=== PATIENT | male | born 1975 | race Caucasian/White ===

== ENCOUNTER 2018-12-06 16:30 | Inpatient (IN) | payer OTHER ==
[2018-12-06] MEDS ORDERED: Labetalol 5mg/ml (4ml) IVP STA ×2 (16:36→17:18)
[2018-12-06 16:38] VITALS: BMI 29.3
[2018-12-06] MEDS ORDERED: Labetalol 5mg/ml (4ml) ONE ×2 (16:41→16:46)
[2018-12-06] MEDS ORDERED: Propofol 10 mg/ml 3,000 MG/300 ML VIAL ONE (16:41)
[2018-12-06] MEDS ORDERED: Propofol 10 mg/ml Inj (20 ML) ONE (16:41)
[2018-12-06] MEDS ORDERED: Sodium Chloride 0.9% 50 ML IV ONE (16:42)
[2018-12-06] MEDS ORDERED: Iodixanol 320 MG/ML 100 ML BOTTLE IV ONE (16:42)
[2018-12-06] MEDS ORDERED: Sodium Chloride 0.9% 1,000 ML IV SCH (16:45)
[2018-12-06] MEDS ORDERED: Nicardipine 20 MG/200 ML 20 MG/200 ML BAG ONE (16:47)
[2018-12-06 16:52] LABS: BASO # 0.1 K/uL (0.0-0.2); BASO % 0.8 % (0.0-2.0); EOS # 0.1 K/uL (0.0-0.7); EOS % 0.8 % (0.0-4.0); HEMOGLOBIN 15.4 g/dL (12.0-18.0); LYMPH # 2.5 K/uL (1.0-4.3); LYMPH % 37.1 % (20.0-40.0); MEAN CELL VOLUME 88.5 fl (80.0-94.0); MEAN CORPUSCULAR HGB CONC 32.7 g/dL (33.0-37.0); MEAN PLATELET VOLUME 6.7 fl (7.2-11.7); MONO # 0.3 K/uL (0.0-0.8); MONO % 4.6 % (0.0-10.0); NEUT # 3.8 K/uL (1.8-7.0); NEUT % 56.7 % (50.0-75.0); NRBC % 0.1 % (0.0-0.0); RBC 5.31 Mil/uL (4.40-5.90); RED CELL DISTRIBUTION WIDTH 14.4 % (11.5-14.5); WHITE BLOOD COUNT 6.6 K/uL (4.8-10.8)
[2018-12-06 16:57] LABS: PROTHROMBIN TIME 10.8 Seconds (9.8-13.1)
[2018-12-06 17:00] LABS: PARTIAL THROMBOPLASTIN TIME 28.5 Seconds (25.6-37.1)
[2018-12-06 17:08] LABS: ALB/GLOB RATIO 1.4 (1.0-2.1); ALBUMIN 4.6 g/dL (3.5-5.0); ALT/SGPT 42 U/L (21-72); AST/SGOT 67 U/L (17-59); BLOOD UREA NITROGEN 9 mg/dl (9-20); CALCIUM 9.2 mg/dL (8.4-10.2); GFR NON-AFRICAN AMERICAN > 60; HDL CHOLESTEROL 108 MG/DL (30-70)
--- NOTE | 2018-12-06 17:10 | CT ---
Date of service: 12/06/2018 PROCEDURE: CT HEAD WITHOUT CONTRAST. HISTORY: code stroke COMPARISON: None available. TECHNIQUE: Axial computed tomography images were obtained through the head/brain without intravenous contrast. Radiation dose: Total exam DLP = 1161.62 mGy-cm. This CT exam was performed using one or more of the following dose reduction techniques: Automated exposure control, adjustment of the mA and/or kV according to patient size, and/or use of iterative reconstruction technique. FINDINGS: HEMORRHAGE: No intracranial hemorrhage. BRAIN: No mass effect or edema. No atrophy or chronic microvascular ischemic changes. VENTRICLES: Unremarkable. No hydrocephalus. CALVARIUM: Unremarkable. PARANASAL SINUSES: Unremarkable as visualized. No significant inflammatory changes. MASTOID AIR CELLS: Unremarkable as visualized. No inflammatory changes. OTHER FINDINGS: There is some asymmetry in the left scalp muscle bundles and soft tissues. There is left fronto temporal subcutaneous fat increased density also perceived series 4, image 15-this may relate to head trauma. No calvarial fracture seen. There is head tilt noted. IMPRESSION: No intracranial hemorrhage or mass effect seen. No calvarial fracture. There is left frontal temporal soft tissue/scalp asymmetrical soft tissue changes and prominence here. This can be seen with a trauma. Correlate clinically.
[2018-12-06 17:18] LABS: LDL CHOLESTEROL 106 mg/dL (0-129)
[2018-12-06] MEDS ORDERED: Nicardipine 20 MG/200 ML 20 MG/200 ML BAG IV ONE (17:18)
[2018-12-06] MEDS ORDERED: levETIRAcetam 1,500 MG in Sodium Chloride 0.9% 100 ML IVPB ONE (17:30)
[2018-12-06 17:35] LABS: ABG ALLEN TEST YES; ARTERIAL BLOOD GAS HCO3 23.1 mmol/L (21-28); ARTERIAL BLOOD GAS O2 SAT 99.1 % (95-98); ARTERIAL BLOOD GAS PCO2 57 mm/Hg (35-45); ARTERIAL BLOOD GAS PH 7.26 (7.35-7.45); ARTERIAL BLOOD GAS PO2 189 mm/Hg (80-100); ARTERIAL BLOOD GAS TCO2 27.3 mmol/L (22-28)
--- NOTE | 2018-12-06 17:40 | RAD ---
Date of service: 12/06/2018 HISTORY: Code Stroke COMPARISON: No prior. FINDINGS: LUNGS: Low lung volumes. Patchy left-sided infiltrates versus atelectatic changes. PLEURA: No significant pleural effusion identified, no pneumothorax apparent. CARDIOVASCULAR: No aortic atherosclerotic calcification present. Normal cardiac size. No pulmonary vascular congestion. OSSEOUS STRUCTURES: No significant abnormalities. VISUALIZED UPPER ABDOMEN: Normal. OTHER FINDINGS: Endotracheal tube with tip between the clavicles and raymon. IMPRESSION: Endotracheal tube in satisfactory position. Patchy left-sided infiltrates versus atelectatic changes.
[2018-12-06 18:00] LABS: BARBITURATES, UR NEGATIVE (NEGATIVE); BENZODIAZEPINES, UR POSITIVE (NEGATIVE); OPIATES, UR NEGATIVE (NEGATIVE); PHENCYCLIDINE, UR NEGATIVE (NEGATIVE)
[2018-12-06] MEDS ORDERED: Midazolam 50 MG in Dextrose 5% In Water 50 ML IV STA (18:15)
[2018-12-06] MEDS ORDERED: Sodium Chloride 0.9% 1,000 ML IV STA (18:25)
--- NOTE | 2018-12-06 18:25 | CT ---
Date of service: 12/06/2018 PROCEDURE: CT Angiography of the Brain. HISTORY: seizure. COMPARISON: No prior similar study available for comparison. TECHNIQUE: CT angiography of the intracranial arteries was performed. Coronal and sagittal maximum intensity projection reformated images were generated. Radiation dose: Total exam DLP = 422.07 mGy-cm. This CT exam was performed using one or more of the following dose reduction techniques: Automated exposure control, adjustment of the mA and/or kV according to patient size, and/or use of iterative reconstruction technique. FINDINGS: RIGHT CAROTID ARTERIES: Common Carotid Artery: Normal. Carotid Bifurcation: Normal. Internal Carotid Artery:Normal. External Carotid Artery (proximal branches): Normal. LEFT CAROTID ARTERIES: Common Carotid Artery: Normal. Carotid Bifurcation: Normal. Internal Carotid Artery:Normal. External Carotid Artery (proximal branches): Normal. VERTEBRAL ARTERIES: Right Vertebral Artery: Normal. Left Vertebral Artery: Normal. INTERNAL CEREBRAL ARTERIES: Unremarkable. The skull base, petrous, cavernous and supraclinoid segments are bilaterally widely patent. ANTERIOR CEREBRAL ARTERIES: Unremarkable. A1 and A2 segments are widely patent. Smaller distal branches unremarkable, as visualized. MIDDLE CEREBRAL ARTERIES: Unremarkable. M1 and M2 segments are widely patent. Perisylvian branches grossly symmetric. POSTERIOR CIRCULATION: Basilar Artery: Unremarkable. Distal Vertebral Arteries: Unremarkable. Posterior Cerebral Arteries: Unremarkable. Posterior Inferior Cerebellar Arteries: Unremarkable. ANEURYSM/ VASCULAR MALFORMATIONS: None. OTHER FINDINGS: The patient is status post intubation. There are linear opacities in the upper lobes likely atelectasis. IMPRESSION: Unremarkable CT Angiography of the Brain. Preliminary report was submitted by [facility].
--- NOTE | 2018-12-06 18:46 | CP.CCUPN ---
CCU Subjective - Physician Review Subjective (Free Text): ICU Admission from ER; discussed with ER MD: 43 y/o male had witnessed seizure at work, duration unknown, posturing and unresponsiveness noted when EMS arrived and subsequently orally intubated. Meds given by EMS included Ativan ad Rocuronium. No further seizure activity noted, remains unresponsive in ER on MV, possible post-ictal state, initial CT head negative for acute pathology. Neurology consulted, Keppra loading initiated. Employer provided pre-employment HP and notable for only HTN and heart problems. Initial VSS in ER noted with BP 235/146, with HR 126, started on Nicardipine drip; breathing 16 on AC 16, SPO2 100% on 100% oxygen. No other information / HPI available, from intubated patient, no family available. Upon the time of my exam, now appears agitated and diaphoretic, RR up to 28; moving all extremities, eye open spontaneously, not following any commands. Nicardipine has been discontinued, BP 153/100, HR 125; Propofol started for anxiolysis and awaiting Versed drip as per ER MD. T = 99.6F, BP 150/120, HR 122, sinus, HR 130 sinus on Nicardipine. ROS: above. No other pertinent negs or positives on 10+ system review obtainable. Allergies: unknown Home meds: Procardia, Atenolol PMSFH: All other Nursing and physician documentation reviewed to date; no new pertinent info noted relevant to current medical problems. EXAM- HEENT: no icterus, no gaze preference, pupils 3 mm and reactive NECK: No JVD visible, supple, carotids equal upstroke bilat/no bruit. CHEST: clear bilat BS; no wheezes audible bilaterally. HEART: regular, distant, tachy S1S2, no rubs or murmurs noted ABD: soft, nontender, no guarding, no organomegaly, BS hypoactive. EXT: no leg edema, no calf tenderness or palpable cords, distal pulses present and symmetrical. NEURO: minimal withdrawal to deep pain. SKIN: no rashes, warm and dry, multiple scattered pinpoint petechial lesions over face, upper torso, abdomen, arms and upper thighs. LABS: WBC= 6.6 HGB= 15.4 PLTs= 126K Coags: normal 7.26/57/189 Lactate= 3.1 Na= 141 K= 3.7 CL= 102 HCO3= 16 BUN/Cr= 9/0.9 BS= 285 Trop negative ammonia = 210 CXR: (my interp) ETT near, but above raymon, large amount of gastric air, no gross consolidation, hypoexpanded lung sanchez. EKG: (my interp) sinus 144/min, minor ST changes II, III, F with T inversions III, tall Ts V1-3. IMPRESSION / MAJOR PROBLEMS NOW: 1. Acute Resp Failure 2 AMS 2. New onset Seizure Disorder, r/o occult intoxication, r/o occult COUNTER TACKER infection. 3. Hypertensive Urgency 4. Hyperammonianemia 5. h/o heart problems PLAN: 1. Airway protection and MV support until neuromental status improves and stabilizes. Neurochecks Q2, Seizure precautions. AEDs started. Consider repeat brain imaging (after 24h with CT or MRI). 2. Cautious reduction in BP, initial MAP = 175, keep with 20% reduction to MAP 140 for now. 3. Repeat Serial Lactates, elevation due to seizure activity. IVFs and volume loading, follow renal function, serial CPKs. 4. Repeat CXR, Sputum for cx, r/o aspiration event. Watch temps, may need empiric abx coverage: e.g. Zosyn for now. 5. Adjust MV settings TV for IBW, avoid too rapid a correction of hypercarbia, decrease FiO2 as tolerated. See orders for TV 400ml, try 80% oxygen and repeat ABG. 6. NGT / OGT for gastric decompression. 7. Repeat serum ammonia level after IVF hydration, check other LFTs, r/o other metabolic pathway disorder, Lactulose via NGT/OGT if he remains obtunded. Serial Accuchecks, check HGB A1c, hyperglycemia post EMS mgmt. 8. Urine tox screen. 9. Prophylactic H-2Bs and LMWH.
--- NOTE | 2018-12-06 19:20 | ED PDOC ---
HPI: Seizure Time Seen by Provider: 12/06/18 16:36 Chief Complaint (Nursing): Seizure Chief Complaint (Provider): Seizure History Per: EMS History/Exam Limitations: clinical condition Recent Seizure Activity Began: Just Before Arrival Number Of Seizures: One Length Of Seizures (Duration): Minutes (x 1) Associated Symptoms: Bit Tongue Post-ictal Period: Yes Additional Complaint(s): 43 year old male bbrought in by EMS due to unconsciousness. According to EMS, coworkers were eating lunch when he collapsed and seized, just prior to arrival (no reported head trauma on falling). Coworkers reports convulsed for approximately one minute. Patient then began posturing position. EMS states on arrival bleeding from the mouth because patient bit tongue. He was given rocuronium and intubated in the field. EMS also gave 4 versed. Patient is sinus tachycardic at 154 and was intubated with 8.0 tube with 25 at the lips. Employer arrived stating that per employee health records he takes nifedipine and sorvate c with a history of HTN and heart problems. According to coworker, he spoke to sister in [facility] who reports he struggles with alcoholism and may have had withdrawal seizure in the past. Past Medical History Reviewed: Historical Data, Nursing Documentation, Vital Signs Vital Signs: Last Vital Signs Temp 99.4 F 12/06/18 19:06 Pulse 114 H 12/06/18 19:06 Resp 16 12/06/18 19:06 BP 144/79 12/06/18 19:06 Pulse Ox 99 12/06/18 19:06 - Medical History PMH: HTN - Surgical History Surgical History: No Surg Hx - Family History Family History: States: Unknown Family Hx - Home Medications Home Medications: Ambulatory Orders Medication Instructions Recorded RX: Atenolol [Tenormin] 50 mg PO DAILY 12/06/18 RX: Nifedipine [Procardia] 10 mg PO Q8 12/06/18 Sorvate C 1 appl TOP 12/06/18 - Allergies Allergies/Adverse Reactions: Allergies Allergy/AdvReac Type Severity Reaction Status Date / Time Unobtainable Allergy Verified 12/06/18 16:36 Review of Systems Review Of Systems: ROS cannot be obtained secondary to pt's inabilty to answer questions. Physical Exam - Reviewed Nursing Documentation Reviewed: Yes Vital Signs Reviewed: Yes - Physical Exam Appears: Positive for: In Acute Distress (intubated) Head Exam: Positive for: ATRAUMATIC, NORMAL INSPECTION, NORMOCEPHALIC Skin: Positive for: Normal Color, Warm, Dry Eye Exam: Positive for: EOMI, Normal appearance, PERRL ENT: Positive for: Other (dried blood around mouth with no active bleeding; abrasion to chin without bleeding. ET tube in place with confirmed waveform) Neck: Positive for: Normal, Painless ROM, Supple Cardiovascular/Chest: Positive for: Tachycardia (at 114). Negative for: Murmur Respiratory: Positive for: Normal Breath Sounds (bilaterally), Other (End- Tidal CO2 at 54). Negative for: Crackles, Rales, Rhonchi, Wheezing, Respiratory Distress Gastrointestinal/Abdominal: Positive for: Normal Exam, Soft. Negative for: Tenderness Extremity: Positive for: Other (purplish plaque at right thigh and along groin) - Laboratory Results Result Diagrams: 12/07/18 04:37 12/07/18 04:37 Lab Results: pCO2 57 mm/Hg (35-45) H 12/06/18 17:20 pO2 189 mm/Hg (80-100) H 12/06/18 17:20 HCO3 23.1 mmol/L (21-28) 12/06/18 17:20 ABG pH 7.26 (7.35-7.45) L 12/06/18 17:20 ABG Total CO2 27.3 mmol/L (22-28) 12/06/18 17:20 ABG O2 Saturation 99.1 % (95-98) H 12/06/18 17:20 ABG Base Excess -2.4 mmol/L (-2.0-3.0) L 12/06/18 17:20 Britton Test Yes 12/06/18 17:20 ABG Potassium 3.9 mmol/L (3.6-5.2) 12/06/18 17:20 A-a O2 Difference -111.0 mm/Hg 12/06/18 17:20 Sodium 135.0 mmol/L (132-148) 12/06/18 17:20 Chloride 101.0 mmol/L (98-107) 12/06/18 17:20 Glucose 234 mg/dL (75-110) H 12/06/18 17:20 Lactate 3.1 mmol/L (0.7-2.1) H 12/06/18 17:20 FiO2 21.0 % 12/06/18 17:20 PT 10.8 Seconds (9.8-13.1) 12/06/18 16:40 INR 1.0 12/06/18 16:40 APTT 28.5 Seconds (25.6-37.1) 12/06/18 16:40 Troponin I 0.0300 ng/mL (0.00-0.120) 12/06/18 16:40 Total Bilirubin 0.7 mg/dl (0.2-1.3) 12/06/18 16:40 AST 67 U/L (17-59) H 12/06/18 16:40 ALT 42 U/L (21-72) 12/06/18 16:40 Alkaline Phosphatase 85 U/L (38-126) 12/06/18 16:40 Total Protein 8.0 G/DL (6.3-8.2) 12/06/18 16:40 Albumin 4.6 g/dL (3.5-5.0) 12/06/18 16:40 Globulin 3.4 gm/dL (2.2-3.9) 12/06/18 16:40 Albumin/Globulin Ratio 1.4 (1.0-2.1) 12/06/18 16:40 - ECG O2 Sat by Pulse Oximetry: 99 (RA) Pulse Ox Interpretation: Normal Medical Decision Making Medical Decision Makin:37 MDM: Workup for stroke vs new onset sz vs post ictal vs HTN emergency Labs including cardiac workup, EKG, CTA Head and neck, CT brain Neuro consult 18:05 Patient with improved blood pressure after 2 doses of labetalol and nicardipine drop (titrated to blood pressure 160-180) Spoke with Natalia who is requesting 1500 mg Keppra and EEG which was ordered Spoke to Dr. Altamirano of ICU for admission and Dr. Rondon for medical services Admitted to the ICU Scribe Attestation: Documented by Jenny Dyer acting as a scribe for Emily Gee MD Provider Scribe Attestation: All medical record entries made by the Scribe were at my direction and personally dictated by me. I have reviewed the chart and agree that the record accurately reflects my personal performance of the history, physical exam, medical decision making, and the department course for this patient. I have also personally directed, reviewed, and agree with the discharge instructions and disposition. Disposition - Clinical Impression Clinical Impression: Seizure disorder - Patient ED Disposition Is Patient to be Admitted: Yes - Disposition Disposition Time: 18:05 Condition: CRITICAL - Pt Status Changed To: Hospital Disposition Of: Inpatient - Admit Certification Admit to Inpatient:: After my assessment, the patient will require hospitalization for at least two midnights. This is because of the severity of symptoms shown, intensity of services needed, and/or the medical risk in this patient being treated as an outpatient.
[2018-12-06] MEDS ORDERED: Labetalol 5mg/ml (4ml) IVP PRN (21:16)
[2018-12-06] MEDS ORDERED: Lactated Ringer's 1,000 ML IV SCH (21:30)
[2018-12-06] MEDS: Piperacillin/Tazobact 3.375 GM in Sodium Chloride 0.9% 100 ML IVPB SCH (22:14)
[2018-12-06] MEDS ORDERED: Acetaminophen 650mg/20.3ml solution UD PO ONE (23:10)
[2018-12-06] MEDS: Insulin Regular 100 units/ml SC SCH (23:31)
[2018-12-07] MEDS: Piperacillin/Tazobact 3.375 GM in Sodium Chloride 0.9% 100 ML IVPB SCH ×4 (04:12→21:33)
[2018-12-07 04:57] LABS: ABG ALLEN TEST YES; ARTERIAL BLOOD GAS HCO3 27.5 mmol/L (21-28); ARTERIAL BLOOD GAS O2 SAT 100.6 % (95-98); ARTERIAL BLOOD GAS PCO2 37 mm/Hg (35-45); ARTERIAL BLOOD GAS PH 7.47 (7.35-7.45); ARTERIAL BLOOD GAS PO2 343 mm/Hg (80-100)
[2018-12-07 05:35] LABS: BASO % 0.5 % (0.0-2.0); EOS # 0.1 K/uL (0.0-0.7); EOS % 0.8 % (0.0-4.0); HEMOGLOBIN 13.5 g/dL (12.0-18.0); LYMPH # 1.4 K/uL (1.0-4.3); LYMPH % 18.8 % (20.0-40.0); MEAN CELL VOLUME 87.3 fl (80.0-94.0); MEAN CORPUSCULAR HEMOGLOBIN 28.7 pg (27.0-31.0); MEAN CORPUSCULAR HGB CONC 32.9 g/dL (33.0-37.0); MEAN PLATELET VOLUME 7.3 fl (7.2-11.7); MONO # 0.8 K/uL (0.0-0.8); MONO % 10.1 % (0.0-10.0); NEUT # 5.3 K/uL (1.8-7.0); NEUT % 69.8 % (50.0-75.0); RBC 4.71 Mil/uL (4.40-5.90); RED CELL DISTRIBUTION WIDTH 14.1 % (11.5-14.5); WHITE BLOOD COUNT 7.6 K/uL (4.8-10.8)
[2018-12-07 06:25] LABS: ALB/GLOB RATIO 1.2 (1.0-2.1); ALBUMIN 3.7 g/dL (3.5-5.0); ALT/SGPT 46 U/L (21-72); AST/SGOT 53 U/L (17-59); BLOOD UREA NITROGEN 7 mg/dl (9-20); CALCIUM 8.8 mg/dL (8.4-10.2); GFR NON-AFRICAN AMERICAN > 60
[2018-12-07] MEDS: Insulin Regular 100 units/ml SC SCH ×2 (07:26→13:26)
--- NOTE | 2018-12-07 07:50 | CP.PCM.HP ---
<Purnima Kent - Last Filed: 12/07/18 13:01> History of Present Illness - History of Present Illness History of Present Illness: HPI: 43 YO Male with PMHx of HTN and sig ETOH abuse presented to [facility] ED after seizure. Pt was was at work when he started seizing, ems was called pt was found given Ativan and rocronium and intubated on site. Pt was brought to the ER, findings sig for elevated ammonia, and sig elevation of BP. Pt is seen and examined in ICU this AM. friends by bedside states that pt has not been taking his BP meds for the past two + weeks and sig ETOH abuse (6 packs of whiskey almost daily). PMHx: HTN and sig ETOH abuse SHx: ETOH abuse, hx of smoking, no illicit drug use per friends and works in IT ROS: unable to obtain given pt intubated Present on Admission - Present on Admission Any Indicators Present on Admission: No Past Patient History - Past Medical History & Family History Past Medical History?: Yes - Past Social History Smoking Status: Current Some Days Smoker Alcohol: > 2 Drinks/Day Drugs: Denies - CARDIAC Hx Hypertension: Yes - MUSCULOSKELETAL/RHEUMATOLOGICAL Hx Falls: Yes - PSYCHIATRIC Hx Substance Use: No Meds Allergies/Adverse Reactions: Allergies Allergy/AdvReac Type Severity Reaction Status Date / Time No Known Allergies Allergy Verified 12/08/18 09:22 Physical Exam - Constitutional Appears: No Acute Distress, Other (intubated and sedated ) - Head Exam Head Exam: NORMAL INSPECTION - Eye Exam Eye Exam: Normal appearance - Respiratory Exam Respiratory Exam: NORMAL BREATHING PATTERN (course breath sounds b/l ). absent: Wheezes - Cardiovascular Exam Cardiovascular Exam: REGULAR RHYTHM, +S1, +S2 - GI/Abdominal Exam GI & Abdominal Exam: Normal Bowel Sounds, Soft - Exam Additional comments: neslon in place draining yellow urine - Extremities Exam Extremities exam: Positive for: normal inspection. Negative for: pedal edema - Neurological Exam Neurological exam: Alert Additional comments: moving all ext, following commands Results - Vital Signs Recent Vital Signs: Last Vital Signs Temp 98.9 F 12/07/18 06:00 Pulse 92 H 12/07/18 06:00 Resp 17 12/07/18 06:00 BP 136/78 12/07/18 06:00 Pulse Ox 100 12/07/18 06:00 - Labs Result Diagrams: 12/07/18 04:37 12/07/18 04:37 Labs: Laboratory Results - last 24 hr 12/06/18 12/06/18 12/06/18 16:40 16:40 16:40 WBC 6.6 RBC 5.31 Hgb 15.4 Hct 47.0 MCV 88.5 MCH 29.0 MCHC 32.7 L RDW 14.4 Plt Count 126 L MPV 6.7 L Neut % (Auto) 56.7 Lymph % (Auto) 37.1 [place] % (Auto) 4.6 Eos % (Auto) 0.8 Baso % (Auto) 0.8 Neut # (Auto) 3.8 Lymph # (Auto) 2.5 [place] # (Auto) 0.3 Eos # (Auto) 0.1 Baso # (Auto) 0.1 PT 10.8 INR 1.0 APTT 28.5 pCO2 pO2 HCO3 ABG pH ABG Total CO2 ABG O2 Saturation ABG Base Excess Britton Test ABG Potassium A-a O2 Difference Glucose Lactate Vent Mode Mechanical Rate FiO2 Tidal Volume PEEP Sodium 141 Potassium 3.7 Chloride 102 Carbon Dioxide 16 L Anion Gap 27 H BUN 9 Creatinine 0.9 Est GFR ( Amer) > 60 Est GFR (Non-Af Amer) > 60 POC Glucose (mg/dL) Random Glucose 285 H Lactic Acid Calcium 9.2 Phosphorus Magnesium Total Bilirubin 0.7 AST 67 H ALT 42 Alkaline Phosphatase 85 Ammonia Total Creatine Kinase Troponin I 0.0300 Total Protein 8.0 Albumin 4.6 Globulin 3.4 Albumin/Globulin Ratio 1.4 Triglycerides 74 Cholesterol 208 H LDL Cholesterol Direct 106 HDL Cholesterol 108 H Arterial Blood Potassium Urine Opiates Screen Urine Methadone Screen Ur Barbiturates Screen Ur Phencyclidine Scrn Ur Amphetamines Screen U Benzodiazepines Scrn U Oth Cocaine Metabols U Cannabinoids Screen Alcohol, Quantitative < 10 Blood Type Antibody Screen BBK History Checked 12/06/18 12/06/18 12/06/18 16:40 16:40 16:43 WBC RBC Hgb Hct MCV MCH MCHC RDW Plt Count MPV Neut % (Auto) Lymph % (Auto) [place] % (Auto) Eos % (Auto) Baso % (Auto) Neut # (Auto) Lymph # (Auto) [place] # (Auto) Eos # (Auto) Baso # (Auto) PT INR APTT pCO2 pO2 HCO3 ABG pH ABG Total CO2 ABG O2 Saturation ABG Base Excess Britton Test ABG Potassium A-a O2 Difference Glucose Lactate Vent Mode Mechanical Rate FiO2 Tidal Volume PEEP Sodium Potassium Chloride Carbon Dioxide Anion Gap BUN Creatinine Est GFR ( Amer) Est GFR (Non-Af Amer) POC Glucose (mg/dL) 229 H Random Glucose Lactic Acid Calcium Phosphorus Magnesium Total Bilirubin AST ALT Alkaline Phosphatase Ammonia 110 H* Total Creatine Kinase Troponin I Total Protein Albumin Globulin Albumin/Globulin Ratio Triglycerides Cholesterol LDL Cholesterol Direct HDL Cholesterol Arterial Blood Potassium Urine Opiates Screen Urine Methadone Screen Ur Barbiturates Screen Ur Phencyclidine Scrn Ur Amphetamines Screen U Benzodiazepines Scrn U Oth Cocaine Metabols U Cannabinoids Screen Alcohol, Quantitative Blood Type A POSITIVE Antibody Screen Negative BBK History Checked No verified bt 12/06/18 12/06/18 12/06/18 17:20 17:40 23:31 WBC RBC Hgb Hct MCV MCH MCHC RDW Plt Count MPV Neut % (Auto) Lymph % (Auto) [place] % (Auto) Eos % (Auto) Baso % (Auto) Neut # (Auto) Lymph # (Auto) [place] # (Auto) Eos # (Auto) Baso # (Auto) PT INR APTT pCO2 57 H pO2 189 H HCO3 23.1 ABG pH 7.26 L ABG Total CO2 27.3 ABG O2 Saturation 99.1 H ABG Base Excess -2.4 L Britton Test Yes ABG Potassium 3.9 A-a O2 Difference -111.0 Glucose 234 H Lactate 3.1 H Vent Mode Mechanical Rate FiO2 21.0 Tidal Volume PEEP Sodium 135.0 Potassium Chloride 101.0 Carbon Dioxide Anion Gap BUN Creatinine Est GFR ( Amer) Est GFR (Non-Af Amer) POC Glucose (mg/dL) 134 H Random Glucose Lactic Acid Calcium Phosphorus Magnesium Total Bilirubin AST ALT Alkaline Phosphatase Ammonia Total Creatine Kinase Troponin I Total Protein Albumin Globulin Albumin/Globulin Ratio Triglycerides Cholesterol LDL Cholesterol Direct HDL Cholesterol Arterial Blood Potassium 3.9 Urine Opiates Screen Negative Urine Methadone Screen Negative Ur Barbiturates Screen Negative Ur Phencyclidine Scrn Negative Ur Amphetamines Screen Negative U Benzodiazepines Scrn Positive U Oth Cocaine Metabols Negative U Cannabinoids Screen Negative Alcohol, Quantitative Blood Type Antibody Screen BBK History Checked 12/07/18 12/07/18 12/07/18 04:35 04:37 04:37 WBC RBC Hgb Hct MCV MCH MCHC RDW Plt Count MPV Neut % (Auto) Lymph % (Auto) [place] % (Auto) Eos % (Auto) Baso % (Auto) Neut # (Auto) Lymph # (Auto) [place] # (Auto) Eos # (Auto) Baso # (Auto) PT INR APTT pCO2 37 pO2 343 H HCO3 27.5 ABG pH 7.47 H ABG Total CO2 28.0 ABG O2 Saturation 100.6 H ABG Base Excess 3.2 H Britton Test Yes ABG Potassium 2.8 L A-a O2 Difference 181.0 Glucose 125 H Lactate 1.7 Vent Mode A/c Mechanical Rate 12 FiO2 80.0 Tidal Volume 400 PEEP 5 Sodium 138.0 Potassium Chloride 109.0 H Carbon Dioxide Anion Gap BUN Creatinine Est GFR ( Amer) Est GFR (Non-Af Amer) POC Glucose (mg/dL) Random Glucose Lactic Acid 1.9 Calcium Phosphorus Magnesium Total Bilirubin AST ALT Alkaline Phosphatase Ammonia 21 D Total Creatine Kinase Troponin I Total Protein Albumin Globulin Albumin/Globulin Ratio Triglycerides Cholesterol LDL Cholesterol Direct HDL Cholesterol Arterial Blood Potassium 2.8 L Urine Opiates Screen Urine Methadone Screen Ur Barbiturates Screen Ur Phencyclidine Scrn Ur Amphetamines Screen U Benzodiazepines Scrn U Oth Cocaine Metabols U Cannabinoids Screen Alcohol, Quantitative Blood Type Antibody Screen BBK History Checked 12/07/18 12/07/18 12/07/18 04:37 04:37 06:20 WBC 7.6 RBC 4.71 Hgb 13.5 Hct 41.1 MCV 87.3 MCH 28.7 MCHC 32.9 L RDW 14.1 Plt Count 99 L D MPV 7.3 Neut % (Auto) 69.8 Lymph % (Auto) 18.8 L [place] % (Auto) 10.1 H Eos % (Auto) 0.8 Baso % (Auto) 0.5 Neut # (Auto) 5.3 Lymph # (Auto) 1.4 [place] # (Auto) 0.8 Eos # (Auto) 0.1 Baso # (Auto) 0.0 PT INR APTT pCO2 pO2 HCO3 ABG pH ABG Total CO2 ABG O2 Saturation ABG Base Excess Britton Test ABG Potassium A-a O2 Difference Glucose Lactate Vent Mode Mechanical Rate FiO2 Tidal Volume PEEP Sodium 139 Potassium 3.0 L Chloride 105 Carbon Dioxide 25 Anion Gap 12 BUN 7 L Creatinine 0.8 Est GFR ( Amer) > 60 Est GFR (Non-Af Amer) > 60 POC Glucose (mg/dL) 124 H Random Glucose 115 H Lactic Acid Calcium 8.8 Phosphorus 3.1 Magnesium 2.1 Total Bilirubin 1.1 AST 53 ALT 46 Alkaline Phosphatase 74 Ammonia Total Creatine Kinase Troponin I Total Protein 6.6 Albumin 3.7 Globulin 3.0 Albumin/Globulin Ratio 1.2 Triglycerides Cholesterol LDL Cholesterol Direct HDL Cholesterol Arterial Blood Potassium Urine Opiates Screen Urine Methadone Screen Ur Barbiturates Screen Ur Phencyclidine Scrn Ur Amphetamines Screen U Benzodiazepines Scrn U Oth Cocaine Metabols U Cannabinoids Screen Alcohol, Quantitative Blood Type Antibody Screen BBK History Checked 12/07/18 06:36 WBC RBC Hgb Hct MCV MCH MCHC RDW Plt Count MPV Neut % (Auto) Lymph % (Auto) [place] % (Auto) Eos % (Auto) Baso % (Auto) Neut # (Auto) Lymph # (Auto) [place] # (Auto) Eos # (Auto) Baso # (Auto) PT INR APTT pCO2 pO2 HCO3 ABG pH ABG Total CO2 ABG O2 Saturation ABG Base Excess Britton Test ABG Potassium A-a O2 Difference Glucose Lactate Vent Mode Mechanical Rate FiO2 Tidal Volume PEEP Sodium Potassium Chloride Carbon Dioxide Anion Gap BUN Creatinine Est GFR ( Amer) Est GFR (Non-Af Amer) POC Glucose (mg/dL) Random Glucose Lactic Acid Calcium Phosphorus Magnesium Total Bilirubin AST ALT Alkaline Phosphatase Ammonia Total Creatine Kinase 858 H Troponin I Total Protein Albumin Globulin Albumin/Globulin Ratio Triglycerides Cholesterol LDL Cholesterol Direct HDL Cholesterol Arterial Blood Potassium Urine Opiates Screen Urine Methadone Screen Ur Barbiturates Screen Ur Phencyclidine Scrn Ur Amphetamines Screen U Benzodiazepines Scrn U Oth Cocaine Metabols U Cannabinoids Screen Alcohol, Quantitative Blood Type Antibody Screen BBK History Checked Assessment & Plan (1) Seizure Status: Acute (2) Hypertension Status: Chronic (3) Substance abuse Status: Chronic (4) Hypokalemia Status: Acute (5) Hyperammonemia Status: Acute (6) Respiratory failure requiring intubation Status: Acute - Assessment and Plan (Free Text) Assessment: Assessment/Plan: 43 YO Male with PMHx of HTN and sig ETOH abuse is admitted after respiratory failure requiring intubation and seizure disorder. Acute respiratory failure -likely 2/2 to ETOH encephalopathy, vs hypertenstive encephalopathy, vs post ictal -intubated and sedated -c/w vent care -ABG sig for acidosis with high O2, consider changing vent setting -CXR tubes in place, atelectasis L side -wean off sedation, extubation Seizure disorder, acute -unknown etiology, HTN encephalopathy (emergency) vs ETOH, metabolic -neurology on board; CT head, CTA, EEG -CT head no acute intracranial finding -CTA no acute findings -c/w keppra HTN emergency -resolved at this time -c/w with bp meds Substance abuse -ETOH abuse -intubated and sedated -CIWA, Ativan prn -thiamine and folic acid Hyperammonia/hyperkalemia -c/w lactulose -replace prn Rhabdo -elevated CPK -likely 2.2 to seizure -IVFs Dvt: Lovenox SC <Rondon,Mariano K - Last Filed: 12/08/18 13:30> Results - Vital Signs Recent Vital Signs: Last Vital Signs Temp 98.4 F 12/08/18 12:21 Pulse 74 12/08/18 12:21 Resp 18 12/08/18 12:21 BP 122/81 12/08/18 12:21 Pulse Ox 92 L 12/08/18 12:21 - Labs Result Diagrams: 12/08/18 05:25 12/08/18 05:25 Labs: Laboratory Results - last 24 hr 12/07/18 12/08/18 12/08/18 16:52 05:25 05:25 WBC 7.0 RBC 4.65 Hgb 13.7 Hct 40.4 MCV 86.8 MCH 29.4 MCHC 33.9 RDW 13.9 Plt Count 101 L Sodium 139 Potassium 3.3 L Chloride 105 Carbon Dioxide 27 Anion Gap 10 BUN 5 L Creatinine 0.8 Est GFR ( Amer) > 60 Est GFR (Non-Af Amer) > 60 POC Glucose (mg/dL) 131 H Random Glucose 90 Calcium 8.8 Total Bilirubin 1.2 AST 41 ALT 36 Alkaline Phosphatase 64 Total Protein 6.6 Albumin 3.5 Globulin 3.0 Albumin/Globulin Ratio 1.2 Triglycerides 97 D Cholesterol 164 LDL Cholesterol Direct 97 HDL Cholesterol 64 Assessment & Plan - Assessment and Plan (Free Text) Assessment: Patient was personally seen and examined by me in rounds with residents. Available labs and diagnostic data reviewed. Case, Patient's condition and management plan discussed with residents in rounds. Agree with resident's progress note. Plan: As ordered.
--- NOTE | 2018-12-07 08:16 | RAD ---
Date of service: 12/07/2018 HISTORY: intubated COMPARISON: Frontal chest radiograph 12/06/2018, 5:01 p.m.. FINDINGS: LUNGS: Endotracheal tube is not significantly changed in position. Interval nasogastric tube is in place terminating at the region of the gastric viscus left upper quadrant abdomen. Diminished airspace disease left base reflecting pneumonia or atelectasis. Borderline similar changes medial right base. PLEURA: No significant pleural effusion identified, no pneumothorax apparent. CARDIOVASCULAR: No aortic atherosclerotic calcification present. Normal cardiac size. No pulmonary vascular congestion. OSSEOUS STRUCTURES: No significant abnormalities. VISUALIZED UPPER ABDOMEN: Normal. OTHER FINDINGS: None. IMPRESSION: Interval nasogastric tube placement terminating at the region of the stomach. ET tube unchanged in position. Diminishing limited left medial basilar atelectasis or infiltrate with similar minimal patchy density medial right base.
[2018-12-07] MEDS ORDERED: levETIRAcetam 500 MG in Sodium Chloride 0.9% 100 ML IVPB SCH (09:00)
[2018-12-07] MEDS ORDERED: Enoxaparin 40 mg Syringe SC SCH (09:00)
[2018-12-07] MEDS: Potassium Chloride 20 mEq 100 ML IVPB SCH ×2 (10:10→12:12)
--- NOTE | 2018-12-07 13:21 | CP.PCM.CON ---
History of Present Illness - History of Present Illness History of Present Illness: Neurology Consultation Note: Consult requested by Dr. Rondon Mr. Reyez is a 43-year-old man with a past medical history of alcoholism, HTN, cardiac disease, who had a seizure at work. EMS was called and the patient required 4 mg of Versed and intubation for airway protection. Currently, the patient is extubated and back to baseline with no focal deficits. Review of Systems - Constitutional Constitutional: As Per HPI - EENT Eyes: absent: As Per HPI, Blind Spots, Blurred Vision, Change in Vision, Decreased Night Vision, Diplopia, Discharge, Dry Eye, Exophthalmos, Floaters, Irritation, Itchy Eyes, Loss of Peripheral Vision, Pain, Photophobia, Requires Corrective Lenses, Sees Flashes, Spots in Vision, Tunnel Vision, Other Visual Disturbances, Loss of Vision, Other Ears: absent: As Per HPI, Decreased Hearing, Ear Discharge, Ear Pain, Tinnitus, Abnormal Hearing, Disequilibrium, Dizziness, Other Nose/Mouth/Throat: absent: As Per HPI, Epistaxis, Nasal Congestion, Nasal Di scharge, Nasal Obstruction, Nasal Trauma, Nose Pain, Post Nasal Drip, Sinus Pain, Sinus Pressure, Bleeding Gums, Change in Voice, Dental Pain, Dry Mouth, Dysphagia, Halitosis, Hoarsness, Lip Swelling, Mouth Lesions, Mouth Pain, Odynophagia, Sore Throat, Throat Swelling, Tongue Swelling, Facial Pain, Neck Pain, Neck Mass, Other - Cardiovascular Cardiovascular: absent: As Per HPI, Acrocyanosis, Chest Pain, Chest Pain at Rest, Chest Pain with Activity, Claudication, Diaphoresis, Dyspnea, Dyspnea on Exertion, Edema, Irregular Heart Rhythm, Pain Radiating to Arm/Neck/Jaw, Leg Edema, Leg Ulcers, Lightheadedness, Orthopnea, Palpitations, Paroxysmal Nocturnal Dyspnea, Pedal Edema, Radiating Pain, Rapid Heart Rate, Slow Heart Rate, Syncope, Other - Respiratory Respiratory: absent: As Per HPI, Cough, Dyspnea, Hemoptysis, Dyspnea on Exertion, Wheezing, Snoring, Stridor, Pain on Inspiration, Chest Congestion, Excessive Mucous Production, Change in Mucous Color, Pain with Coughing, Other - Gastrointestinal Gastrointestinal: absent: As Per HPI, Abdominal Pain, Belching, Bloating, Change in Bowel Habits, Change in Stool Character, Coffee Ground Emesis, Constipation, Cramping, Diarrhea, Dyspepsia, Dysphagia, Early Satiety, Excessive Flatus, Fecal Incontinence, Heartburn, Hematemesis, Hematochezia, Loose Stools, Melena, Nausea, Odynophagia, Temesmus, Vomiting, Other - Musculoskeletal Musculoskeletal: absent: As Per HPI, Abnormal Gait, Arthralgias, Atrophy, Back Pain, Deformity, Joint Swelling, Limited Range of Motion, Loss of Height, Muscle Cramps, Muscle Weakness, Myalgias, Neck Pain, Numbness, Radiating Pain into Limb, Stiffness, Tingling, Other - Integumentary Integumentary: absent: As Per HPI, Acne, Alopecia, Bleeding Lesions, Change in Hair, Change in Nails, Change in Pigmentation, Changing Lesions, Dry Skin, Erythema, Furuncle, Hirsutism, Lesions, New Lesions, Non-Healing Lesions, Ph otosensitivity, Pruritus, Rash, Skin Pain, Skin Ulcer, Sores, Striae, Swelling, Unusual Bruising, Wounds, Jaundice, Other - Neurological Neurological: As Per HPI - Psychiatric Psychiatric: absent: As Per HPI, Abnormal Sleep Pattern, Anhedonia, Anxiety, Auditory Hallucinations, Behavioral Changes, Change in Appetite, Change in Libido, Confusion, Depression, Difficulty Concentrating, Hallucinations, Homicidal Ideation, Hopelessness, Irritability, Memory Loss, Mood Swings, Panic Attacks, Paranoia, Suicidal Ideation, Visual Hallucinations, Tactile Hallucinations, Other - Endocrine Endocrine: absent: As Per HPI, Change in Body Appearance, Change in Libido, Cold Intolorance, Deepening of Voice, Excessive Sweating, Fatigue, Flushing, Heat Intolorance, Increase in Ring/Shoe/Hat Size, Palpitations, Polydipsia, Polyphagia, Polyuria, Other - Hematologic/Lymphatic Hematologic: absent: As Per HPI, Easy Bleeding, Easy Bruising, Lymphadenopathy, Other Past Patient History - Past Medical History & Family History Past Medical History?: Yes - Past Social History Smoking Status: Current Some Days Smoker Alcohol: > 2 Drinks/Day Drugs: Denies - CARDIAC Hx Hypertension: Yes - MUSCULOSKELETAL/RHEUMATOLOGICAL Hx Falls: Yes - PSYCHIATRIC Hx Substance Use: No Meds Allergies/Adverse Reactions: Allergies Allergy/AdvReac Type Severity Reaction Status Date / Time Unobtainable Allergy Verified 12/06/18 16:36 - Medications Medications: Current Medications Folic Acid (Folic Acid) 1 mg GT DAILY [facility] Last Admin: 12/07/18 10:09 Dose: 1 mg Lactated Ringer's (Lactated Ringer's) 1,000 mls @ 175 mls/hr IV [id number] [facility] Last Admin: 12/06/18 22:13 Dose: 175 mls/hr Piperacillin Sod/Tazobactam (Sod 3.375 gm/ Sodium Chloride) 100 mls @ 100 mls/hr IVPB Q6 [facility]; Protocol Last Admin: 12/07/18 04:12 Dose: 100 mls/hr Potassium Chloride (Potassium Chloride 20 Meq/100 Ml) 100 mls @ 50 mls/hr IVPB Q2 [facility] Stop: 12/07/18 13:59 Last Admin: 12/07/18 12:12 Dose: 50 mls/hr Insulin Human Regular (Humulin R) 0 units SC ACCU-CHECK [facility]; Protocol Last Admin: 12/07/18 07:26 Dose: Not Given Labetalol HCl (Trandate) 20 mg IVP Q3H PRN PRN Reason: Systolic Blood Pressure Levetiracetam (Keppra) 500 mg PO BID [facility] Lorazepam (Ativan) 2 mg IVP Q6 PRN PRN Reason: Symptoms of alcohol withdrawl Metoprolol Tartrate (Lopressor) 50 mg PO DAILY [facility] Nifedipine (Procardia) 10 mg PO TID [facility] Last Admin: 12/07/18 09:16 Dose: Not Given Thiamine HCl (Vitamin B1 Tab) 100 mg GT DAILY [facility] Last Admin: 12/07/18 10:10 Dose: 100 mg Physical Exam - Constitutional Appears: Well - Head Exam Head Exam: ATRAUMATIC, NORMAL INSPECTION, NORMOCEPHALIC - Eye Exam Eye Exam: EOMI, Normal appearance, PERRL Pupil Exam: NORMAL ACCOMODATION, PERRL - ENT Exam ENT Exam: Mucous Membranes Moist, Normal Exam - Neck Exam Neck exam: Positive for: Normal Inspection - Respiratory Exam Respiratory Exam: Clear to Auscultation Bilateral, NORMAL BREATHING PATTERN - Cardiovascular Exam Cardiovascular Exam: REGULAR RHYTHM, +S1, +S2 - GI/Abdominal Exam GI & Abdominal Exam: Normal Bowel Sounds, Soft. absent: Tenderness - Extremities Exam Extremities exam: Positive for: normal inspection - Back Exam Back exam: NORMAL INSPECTION - Neurological Exam Neurological exam: Alert, CN II-XII Intact, Normal Gait, Oriented x3, Reflexes Normal - Psychiatric Exam Psychiatric exam: Normal Affect, Normal Mood - Skin Skin Exam: Dry, Intact, Normal Color, Warm Results - Vital Signs Recent Vital Signs: Last Vital Signs Temp 98.2 F 12/07/18 12:00 Pulse 80 12/07/18 12:00 Resp 16 12/07/18 12:00 BP 100/52 L 12/07/18 12:00 Pulse Ox 100 12/07/18 12:00 - Labs Result Diagrams: 12/07/18 04:37 12/07/18 04:37 Labs: Laboratory Results - last 24 hr 12/06/18 12/06/18 12/06/18 16:40 16:40 16:40 WBC 6.6 RBC 5.31 Hgb 15.4 Hct 47.0 MCV 88.5 MCH 29.0 MCHC 32.7 L RDW 14.4 Plt Count 126 L MPV 6.7 L Neut % (Auto) 56.7 Lymph % (Auto) 37.1 Burnet % (Auto) 4.6 Eos % (Auto) 0.8 Baso % (Auto) 0.8 Neut # (Auto) 3.8 Lymph # (Auto) 2.5 Burnet # (Auto) 0.3 Eos # (Auto) 0.1 Baso # (Auto) 0.1 PT 10.8 INR 1.0 APTT 28.5 pCO2 pO2 HCO3 ABG pH ABG Total CO2 ABG O2 Saturation ABG Base Excess Britton Test ABG Potassium A-a O2 Difference Glucose Lactate Vent Mode Mechanical Rate FiO2 Tidal Volume PEEP Sodium 141 Potassium 3.7 Chloride 102 Carbon Dioxide 16 L Anion Gap 27 H BUN 9 Creatinine 0.9 Est GFR ( Amer) > 60 Est GFR (Non-Af Amer) > 60 POC Glucose (mg/dL) Random Glucose 285 H Hemoglobin A1c Lactic Acid Calcium 9.2 Phosphorus Magnesium Total Bilirubin 0.7 AST 67 H ALT 42 Alkaline Phosphatase 85 Ammonia Total Creatine Kinase Troponin I 0.0300 Total Protein 8.0 Albumin 4.6 Globulin 3.4 Albumin/Globulin Ratio 1.4 Triglycerides 74 Cholesterol 208 H LDL Cholesterol Direct 106 HDL Cholesterol 108 H Vitamin B12 TSH 3rd Generation Arterial Blood Potassium Urine Opiates Screen Urine Methadone Screen Ur Barbiturates Screen Ur Phencyclidine Scrn Ur Amphetamines Screen U Benzodiazepines Scrn U Oth Cocaine Metabols U Cannabinoids Screen Alcohol, Quantitative < 10 Blood Type Blood Type Confirm Antibody Screen BBK History Checked 12/06/18 12/06/18 12/06/18 16:40 16:40 16:43 WBC RBC Hgb Hct MCV MCH MCHC RDW Plt Count MPV Neut % (Auto) Lymph % (Auto) Burnet % (Auto) Eos % (Auto) Baso % (Auto) Neut # (Auto) Lymph # (Auto) Burnet # (Auto) Eos # (Auto) Baso # (Auto) PT INR APTT pCO2 pO2 HCO3 ABG pH ABG Total CO2 ABG O2 Saturation ABG Base Excess Britton Test ABG Potassium A-a O2 Difference Glucose Lactate Vent Mode Mechanical Rate FiO2 Tidal Volume PEEP Sodium Potassium Chloride Carbon Dioxide Anion Gap BUN Creatinine Est GFR ( Amer) Est GFR (Non-Af Amer) POC Glucose (mg/dL) 229 H Random Glucose Hemoglobin A1c Lactic Acid Calcium Phosphorus Magnesium Total Bilirubin AST ALT Alkaline Phosphatase Ammonia 110 H* Total Creatine Kinase Troponin I Total Protein Albumin Globulin Albumin/Globulin Ratio Triglycerides Cholesterol LDL Cholesterol Direct HDL Cholesterol Vitamin B12 TSH 3rd Generation Arterial Blood Potassium Urine Opiates Screen Urine Methadone Screen Ur Barbiturates Screen Ur Phencyclidine Scrn Ur Amphetamines Screen U Benzodiazepines Scrn U Oth Cocaine Metabols U Cannabinoids Screen Alcohol, Quantitative Blood Type A POSITIVE Blood Type Confirm Antibody Screen Negative BBK History Checked No verified bt 12/06/18 12/06/18 12/06/18 16:48 17:20 17:40 WBC RBC Hgb Hct MCV MCH MCHC RDW Plt Count MPV Neut % (Auto) Lymph % (Auto) Burnet % (Auto) Eos % (Auto) Baso % (Auto) Neut # (Auto) Lymph # (Auto) Burnet # (Auto) Eos # (Auto) Baso # (Auto) PT INR APTT pCO2 57 H pO2 189 H HCO3 23.1 ABG pH 7.26 L ABG Total CO2 27.3 ABG O2 Saturation 99.1 H ABG Base Excess -2.4 L Britton Test Yes ABG Potassium 3.9 A-a O2 Difference -111.0 Glucose 234 H Lactate 3.1 H Vent Mode Mechanical Rate FiO2 21.0 Tidal Volume PEEP Sodium 135.0 Potassium Chloride 101.0 Carbon Dioxide Anion Gap BUN Creatinine Est GFR ( Amer) Est GFR (Non-Af Amer) POC Glucose (mg/dL) Random Glucose Hemoglobin A1c 5.7 Lactic Acid Calcium Phosphorus Magnesium Total Bilirubin AST ALT Alkaline Phosphatase Ammonia Total Creatine Kinase Troponin I Total Protein Albumin Globulin Albumin/Globulin Ratio Triglycerides Cholesterol LDL Cholesterol Direct HDL Cholesterol Vitamin B12 TSH 3rd Generation Arterial Blood Potassium 3.9 Urine Opiates Screen Negative Urine Methadone Screen Negative Ur Barbiturates Screen Negative Ur Phencyclidine Scrn Negative Ur Amphetamines Screen Negative U Benzodiazepines Scrn Positive U Oth Cocaine Metabols Negative U Cannabinoids Screen Negative Alcohol, Quantitative Blood Type Blood Type Confirm Antibody Screen BBK History Checked 12/06/18 12/07/18 12/07/18 23:31 04:35 04:37 WBC RBC Hgb Hct MCV MCH MCHC RDW Plt Count MPV Neut % (Auto) Lymph % (Auto) Burnet % (Auto) Eos % (Auto) Baso % (Auto) Neut # (Auto) Lymph # (Auto) Burnet # (Auto) Eos # (Auto) Baso # (Auto) PT INR APTT pCO2 37 pO2 343 H HCO3 27.5 ABG pH 7.47 H ABG Total CO2 28.0 ABG O2 Saturation 100.6 H ABG Base Excess 3.2 H Britton Test Yes ABG Potassium 2.8 L A-a O2 Difference 181.0 Glucose 125 H Lactate 1.7 Vent Mode A/c Mechanical Rate 12 FiO2 80.0 Tidal Volume 400 PEEP 5 Sodium 138.0 Potassium Chloride 109.0 H Carbon Dioxide Anion Gap BUN Creatinine Est GFR ( Amer) Est GFR (Non-Af Amer) POC Glucose (mg/dL) 134 H Random Glucose Hemoglobin A1c Lactic Acid Calcium Phosphorus Magnesium Total Bilirubin AST ALT Alkaline Phosphatase Ammonia Total Creatine Kinase Troponin I Total Protein Albumin Globulin Albumin/Globulin Ratio Triglycerides Cholesterol LDL Cholesterol Direct HDL Cholesterol Vitamin B12 TSH 3rd Generation Arterial Blood Potassium 2.8 L Urine Opiates Screen Urine Methadone Screen Ur Barbiturates Screen Ur Phencyclidine Scrn Ur Amphetamines Screen U Benzodiazepines Scrn U Oth Cocaine Metabols U Cannabinoids Screen Alcohol, Quantitative Blood Type Blood Type Confirm A POSITIVE Antibody Screen BBK History Checked 12/07/18 12/07/18 12/07/18 04:37 04:37 04:37 WBC RBC Hgb Hct MCV MCH MCHC RDW Plt Count MPV Neut % (Auto) Lymph % (Auto) Burnet % (Auto) Eos % (Auto) Baso % (Auto) Neut # (Auto) Lymph # (Auto) Burnet # (Auto) Eos # (Auto) Baso # (Auto) PT INR APTT pCO2 pO2 HCO3 ABG pH ABG Total CO2 ABG O2 Saturation ABG Base Excess Britton Test ABG Potassium A-a O2 Difference Glucose Lactate Vent Mode Mechanical Rate FiO2 Tidal Volume PEEP Sodium 139 Potassium 3.0 L Chloride 105 Carbon Dioxide 25 Anion Gap 12 BUN 7 L Creatinine 0.8 Est GFR ( Amer) > 60 Est GFR (Non-Af Amer) > 60 POC Glucose (mg/dL) Random Glucose 115 H Hemoglobin A1c Lactic Acid 1.9 Calcium 8.8 Phosphorus 3.1 Magnesium 2.1 Total Bilirubin 1.1 AST 53 ALT 46 Alkaline Phosphatase 74 Ammonia 21 D Total Creatine Kinase Troponin I Total Protein 6.6 Albumin 3.7 Globulin 3.0 Albumin/Globulin Ratio 1.2 Triglycerides Cholesterol LDL Cholesterol Direct HDL Cholesterol Vitamin B12 TSH 3rd Generation Arterial Blood Potassium Urine Opiates Screen Urine Methadone Screen Ur Barbiturates Screen Ur Phencyclidine Scrn Ur Amphetamines Screen U Benzodiazepines Scrn U Oth Cocaine Metabols U Cannabinoids Screen Alcohol, Quantitative Blood Type Blood Type Confirm Antibody Screen BBK History Checked 12/07/18 12/07/18 12/07/18 04:37 06:20 06:36 WBC 7.6 RBC 4.71 Hgb 13.5 Hct 41.1 MCV 87.3 MCH 28.7 MCHC 32.9 L RDW 14.1 Plt Count 99 L D MPV 7.3 Neut % (Auto) 69.8 Lymph % (Auto) 18.8 L Burnet % (Auto) 10.1 H Eos % (Auto) 0.8 Baso % (Auto) 0.5 Neut # (Auto) 5.3 Lymph # (Auto) 1.4 Burnet # (Auto) 0.8 Eos # (Auto) 0.1 Baso # (Auto) 0.0 PT INR APTT pCO2 pO2 HCO3 ABG pH ABG Total CO2 ABG O2 Saturation ABG Base Excess Britton Test ABG Potassium A-a O2 Difference Glucose Lactate Vent Mode Mechanical Rate FiO2 Tidal Volume PEEP Sodium Potassium Chloride Carbon Dioxide Anion Gap BUN Creatinine Est GFR ( Amer) Est GFR (Non-Af Amer) POC Glucose (mg/dL) 124 H Random Glucose Hemoglobin A1c Lactic Acid Calcium Phosphorus Magnesium Total Bilirubin AST ALT Alkaline Phosphatase Ammonia Total Creatine Kinase 858 H Troponin I Total Protein Albumin Globulin Albumin/Globulin Ratio Triglycerides Cholesterol LDL Cholesterol Direct HDL Cholesterol Vitamin B12 TSH 3rd Generation Arterial Blood Potassium Urine Opiates Screen Urine Methadone Screen Ur Barbiturates Screen Ur Phencyclidine Scrn Ur Amphetamines Screen U Benzodiazepines Scrn U Oth Cocaine Metabols U Cannabinoids Screen Alcohol, Quantitative Blood Type Blood Type Confirm Antibody Screen BBK History Checked 12/07/18 12/07/18 07:35 12:33 WBC RBC Hgb Hct MCV MCH MCHC RDW Plt Count MPV Neut % (Auto) Lymph % (Auto) Burnet % (Auto) Eos % (Auto) Baso % (Auto) Neut # (Auto) Lymph # (Auto) Burnet # (Auto) Eos # (Auto) Baso # (Auto) PT INR APTT pCO2 pO2 HCO3 ABG pH ABG Total CO2 ABG O2 Saturation ABG Base Excess Britton Test ABG Potassium A-a O2 Difference Glucose Lactate Vent Mode Mechanical Rate FiO2 Tidal Volume PEEP Sodium Potassium Chloride Carbon Dioxide Anion Gap BUN Creatinine Est GFR ( Amer) Est GFR (Non-Af Amer) POC Glucose (mg/dL) 99 Random Glucose Hemoglobin A1c Lactic Acid Calcium Phosphorus 3.1 Magnesium 2.1 Total Bilirubin AST ALT Alkaline Phosphatase Ammonia Total Creatine Kinase Troponin I Total Protein Albumin Globulin Albumin/Globulin Ratio Triglycerides Cholesterol LDL Cholesterol Direct HDL Cholesterol Vitamin B12 227 L TSH 3rd Generation 1.88 Arterial Blood Potassium Urine Opiates Screen Urine Methadone Screen Ur Barbiturates Screen Ur Phencyclidine Scrn Ur Amphetamines Screen U Benzodiazepines Scrn U Oth Cocaine Metabols U Cannabinoids Screen Alcohol, Quantitative Blood Type Blood Type Confirm Antibody Screen BBK History Checked Assessment & Plan (1) Seizure Assessment and Plan: Will review EEG and obtain MRI of the brain with and without contrast for further evaluation. Continue supportive care, CIWA protocol. Thank you for this consultation. Status: Acute
--- NOTE | 2018-12-07 13:59 | CARD ---
APPROVED REPORT Date of service: 12/06/2018 EKG Measurement Heart [id number] <Conclusion> Sinus tachycardia Possible Left atrial enlargement Nonspecific ST abnormality Abnormal ECG
--- NOTE | 2018-12-07 15:41 | CP.CCUPN ---
CCU Subjective - Physician Review Subjective (Free Text): Remained on MV overnight, required both Propofol and moderate dose Versed for anxiolysis. Sedation vacation performed, tolerated brief SBT and decision made to liberate from MV, with wakeful state and able to follow commands without any overt increase in agitation. Sedatives stopped and patient kept on low level CPAP PS, tolerated for approx. 1 hour and subsequently extubated without difficulty. No recurrent seizure activity noted. T max= 100.8F, SBPs highly variable from 110-170s, HR 80s, sinus, SPo2 100% on 50% oxygen via vent. ROS: above. No other pertinent negs or positives on 10+ system review. Admits to drinking 5 bottles of whiskey daily. Home meds: Procardia, Atenolol, admits to running out of meds and noncompliant. PMSFH: All other Nursing and physician documentation reviewed to date; no new pertinent info noted relevant to current medical problems. EXAM- HEENT: no icterus, no gaze preference, pupils 3 mm and reactive NECK: No JVD visible, supple, carotids equal upstroke bilat/no bruit. CHEST: clear bilat BS; no wheezes audible bilaterally. HEART: regular, distant, tachy S1S2, no rubs or murmurs noted ABD: soft, nontender, no guarding, no organomegaly, BS hypoactive. EXT: no leg edema, no calf tenderness or palpable cords, distal pulses present and symmetrical. NEURO: minimal withdrawal to deep pain. SKIN: no rashes, warm and dry, resolving multiple scattered pinpoint petechial lesions over face, upper torso, abdomen, arms and upper thighs. LABS: WBC= 7.6 HGB= 13.5 PLTs= 99K Coags: normal 7.47/37/343 Lactate=1.9 CPK= 848 Na= 139 K= 3.0 CL= 105 HCO3= 25 BUN/Cr= 7/0.8 BS= 115 Trop negative Ammonia = normal IMPRESSION / MAJOR PROBLEMS NOW: 1. Acute Resp Failure 2 AMS-resolved 2. New onset Seizure Disorder, r/o occult intoxication, r/o occult [employer] infection. 3. Hypertensive Urgency; improved BP levels. 4. Hyperammonianemia- resolved 5. h/o heart problems PLAN: 1. Extubated. 2. Thiamine and Folate. 3. Watch for s/sx ETOH withdrawal. 4. EEG 5. Resume BBs and CCBs. Lopressor and Procardia ordered. 6. K repleted. 7. AED coverage with Keppra. 8. IVFs, follow serial CPKs. 9. If resp status stable overnight post extubation, downgrade to reg bed in AM.
[2018-12-07] MEDS: Lactated Ringer's 1,000 ML IV SCH (18:10)
[2018-12-08] MEDS: Piperacillin/Tazobact 3.375 GM in Sodium Chloride 0.9% 100 ML IVPB SCH ×4 (04:34→22:28)
[2018-12-08 05:49] LABS: HEMOGLOBIN 13.7 g/dL (12.0-18.0); MEAN CELL VOLUME 86.8 fl (80.0-94.0); MEAN CORPUSCULAR HEMOGLOBIN 29.4 pg (27.0-31.0); MEAN CORPUSCULAR HGB CONC 33.9 g/dL (33.0-37.0); RBC 4.65 Mil/uL (4.40-5.90); RED CELL DISTRIBUTION WIDTH 13.9 % (11.5-14.5)
[2018-12-08 05:58] LABS: LDL CHOLESTEROL 97 mg/dL (0-129)
[2018-12-08 06:22] LABS: ALB/GLOB RATIO 1.2 (1.0-2.1); ALBUMIN 3.5 g/dL (3.5-5.0); ALT/SGPT 36 U/L (21-72); AST/SGOT 41 U/L (17-59); BLOOD UREA NITROGEN 5 mg/dl (9-20); CALCIUM 8.8 mg/dL (8.4-10.2); GFR NON-AFRICAN AMERICAN > 60; HDL CHOLESTEROL 64 MG/DL (30-70)
--- NOTE | 2018-12-08 07:34 | CP.PCM.PN ---
<Purnima Kent - Last Filed: 12/08/18 08:05> Subjective - Date & Time of Evaluation Date of Evaluation: 12/08/18 Time of Evaluation: 07:31 - Subjective Subjective: Patient was extubated yesterday, doing well on room air. Pt seen and examined by bedside this AM. States that he is feeling well, endorsing dryness and soreness around his mouth Denies chest pain, headache, dyspnea, palpitations, vis/aud hallucinations, crawling, tremors. Objective - Vital Signs/Intake and Output Vital Signs (last 24 hours): Temp Pulse Resp BP Pulse Ox 98.6 F 91 H 18 140/82 92 L 12/08/18 04:00 12/08/18 06:00 12/08/18 06:00 12/08/18 06:00 12/08/18 06:00 - Medications Medications: Current Medications Chlordiazepoxide (Librium) 50 mg PO Q8@0600,1400,2200 [facility] Last Admin: 12/08/18 07:00 Dose: 50 mg Cyanocobalamin (Vitamin B12 1000 Mcg/Ml Inj) 1,000 mcg IM DAILY [facility] Folic Acid (Folic Acid) 1 mg GT DAILY [facility] Last Admin: 12/07/18 10:09 Dose: 1 mg Piperacillin Sod/Tazobactam (Sod 3.375 gm/ Sodium Chloride) 100 mls @ 100 mls/hr IVPB Q6 [facility]; Protocol Last Admin: 12/08/18 04:34 Dose: 100 mls/hr Lactated Ringer's (Lactated Ringer's) 1,000 mls @ 84 mls/hr IV .[id number] [facility] Last Admin: 12/07/18 18:10 Dose: 84 mls/hr Labetalol HCl (Trandate) 20 mg IVP Q3H PRN PRN Reason: Systolic Blood Pressure Levetiracetam (Keppra) 500 mg PO BID [facility] Last Admin: 12/07/18 17:08 Dose: 500 mg Lorazepam (Ativan) 1 mg IVP Q6 PRN PRN Reason: Symptoms of alcohol withdrawl Metoprolol Tartrate (Lopressor) 50 mg PO BID [facility] Nifedipine (Procardia) 10 mg PO Q8@0200,1000,1800 [facility] Last Admin: 12/08/18 04:43 Dose: 10 mg Potassium Chloride (Potassium Chloride Oral Soln) 40 meq PO ONCE ONE Stop: 12/08/18 08:01 Thiamine HCl (Vitamin B1 Tab) 100 mg GT DAILY [facility] Last Admin: 12/07/18 10:10 Dose: 100 mg - Labs Labs: 12/08/18 05:25 12/08/18 05:25 PT 10.8 Seconds (9.8-13.1) 12/06/18 16:40 INR 1.0 12/06/18 16:40 APTT 28.5 Seconds (25.6-37.1) 12/06/18 16:40 - Constitutional Appears: No Acute Distress - Head Exam Head Exam: NORMAL INSPECTION - Eye Exam Eye Exam: Normal appearance - Respiratory Exam Respiratory Exam: Clear to Ausculation Bilateral, NORMAL BREATHING PATTERN - Cardiovascular Exam Cardiovascular Exam: REGULAR RHYTHM, +S1, +S2 - GI/Abdominal Exam GI & Abdominal Exam: Soft, Normal Bowel Sounds. absent: Tenderness - Extremities Exam Extremities Exam: absent: Pedal Edema Additional comments: no tremors noted on full extension of the hands b/l - Neurological Exam Neurological Exam: Alert, Awake, Oriented x3 - Psychiatric Exam Psychiatric exam: Normal Mood Assessment and Plan (1) Seizure Status: Acute (2) Hypertension Status: Chronic (3) Substance abuse Status: Chronic (4) Hypokalemia Status: Acute (5) Hyperammonemia Status: Acute (6) Respiratory failure requiring intubation Status: Acute - Assessment and Plan (Free Text) Assessment: Assessment/Plan: 43 YO Male with PMHx of HTN and sig ETOH abuse is admitted after respiratory failure requiring intubation and seizure disorder. Pt successful extubated yesterday (12/07). Seizure disorder, acute -unknown etiology, HTN encephalopathy (emergency) vs ETOH, metabolic -neurology on board; CT head, CTA, EEG -CT head no acute intracranial finding -CTA no acute findings -c/w keppra HTN -uncontrolled -c.w home meds -metoprolol increased to BID -labatalol prn Acute respiratory failure -resolved, extubated yesterday -likely 2/2 to ETOH encephalopathy, vs hypertenstive encephalopathy, vs post ictal -breathing well in RA Substance abuse -ETOH abuse -intubated and sedated -CIWA, Ativan prn -thiamine and folic acid Hyperammonia/hyperkalemia -resolved -c/w lactulose -replace prn Rhabdo -elevated CPK -likely 2.2 to seizure -IVFs Dvt: Lovenox SC Pt hemodynamically stable, will transfer out of ICU <Mariano Rondon - Last Filed: 12/08/18 13:26> Objective - Vital Signs/Intake and Output Vital Signs (last 24 hours): Temp Pulse Resp BP Pulse Ox 98.4 F 74 18 122/81 92 L 12/08/18 12:21 12/08/18 12:21 12/08/18 12:21 12/08/18 12:21 12/08/18 12:21 - Medications Medications: Current Medications Benzocaine/Menthol (Cepacol Sore Throat) 1 elizabeth PO Q3 PRN PRN Reason: Sore Throat Last Admin: 12/08/18 13:12 Dose: 1 elizabeth Chlordiazepoxide (Librium) 50 mg PO Q8@0600,1400,2200 [facility] Last Admin: 12/08/18 13:12 Dose: 50 mg Cyanocobalamin (Vitamin B12 1000 Mcg/Ml Inj) 1,000 mcg IM DAILY [facility] Last Admin: 12/08/18 09:05 Dose: 1,000 mcg Folic Acid (Folic Acid) 1 mg GT DAILY [facility] Last Admin: 12/08/18 09:08 Dose: 1 mg Piperacillin Sod/Tazobactam (Sod 3.375 gm/ Sodium Chloride) 100 mls @ 100 mls/hr IVPB Q6 [facility]; Protocol Last Admin: 12/08/18 09:10 Dose: 100 mls/hr Lactated Ringer's (Lactated Ringer's) 1,000 mls @ 84 mls/hr IV .[id number] [facility] Last Admin: 12/08/18 09:09 Dose: 84 mls/hr Labetalol HCl (Trandate) 20 mg IVP Q3H PRN PRN Reason: Systolic Blood Pressure Levetiracetam (Keppra) 500 mg PO BID [facility] Last Admin: 12/08/18 09:08 Dose: 500 mg Lorazepam (Ativan) 1 mg IVP Q6 PRN PRN Reason: Symptoms of alcohol withdrawl Metoprolol Tartrate (Lopressor) 50 mg PO BID [facility] Last Admin: 12/08/18 09:06 Dose: 50 mg Nifedipine (Procardia) 10 mg PO Q8@0200,1000,1800 [facility] Last Admin: 12/08/18 09:07 Dose: 10 mg Thiamine HCl (Vitamin B1 Tab) 100 mg GT DAILY [facility] Last Admin: 12/08/18 09:09 Dose: 100 mg - Labs Labs: 12/08/18 05:25 12/08/18 05:25 PT 10.8 Seconds (9.8-13.1) 12/06/18 16:40 INR 1.0 12/06/18 16:40 APTT 28.5 Seconds (25.6-37.1) 12/06/18 16:40 Assessment and Plan - Assessment and Plan (Free Text) Assessment: Patient was personally seen and examined by me in rounds with residents. Available labs and diagnostic data reviewed. Case, Patient's condition and management plan discussed with residents in rounds. Agree with resident's progress note. Plan: As ordered.
[2018-12-08] MEDS ORDERED: Potassium Chloride 20 mEq/15 ml LIQ UD PO ONE (08:00)
--- NOTE | 2018-12-08 08:31 | CP.CCUPN ---
CCU Subjective - Physician Review Subjective (Free Text): Uneventful overnight, stable oxygenation at times off nasal cannula, no other distress, no recurrent seizure activity observed by nurses nor mentioned by patient. De [place] discontinued. BP max has been up to 160/100, HR 88, RR 19, 98% on RA, Afebrile. ROS: above. No other pertinent negs or positives on 10+ system review. Admits to drinking 5 bottles of whiskey daily. PMSFH: All other Nursing and physician documentation reviewed to date; no new pertinent info noted relevant to current medical problems. EXAM- HEENT: no icterus, no gaze preference, pupils 3 mm and reactive NECK: No JVD visible, supple, carotids equal upstroke bilat/no bruit. CHEST: clear bilat BS; no wheezes audible bilaterally. HEART: regular, distant, tachy S1S2, no rubs or murmurs noted ABD: soft, nontender, no guarding, no organomegaly, BS hypoactive. EXT: no leg edema, no calf tenderness or palpable cords, distal pulses present and symmetrical. NEURO: minimal withdrawal to deep pain. SKIN: no rashes, warm and dry, resolving multiple scattered pinpoint petechial lesions over face, upper torso, abdomen, arms and upper thighs. LABS: WBC= 7.0 HGB= 13.7 PLTs= 101K Na= 139 K= 3.3 CL= 105 HCO3= 27 BUN/Cr= 5/0.8 BS= 90 IMPRESSION / MAJOR PROBLEMS NOW: 1. Acute Resp Failure 2 AMS-resolved 2. New onset Seizure Disorder, r/o occult intoxication, r/o occult CHEMIST FOOD infection. 3. Hypertensive Urgency; improved BP levels. 4. Hyperammonianemia- resolved 5. h/o heart problems PLAN: 1. May need further adjustment of antiHTN meds for more gradual control of BP. 2. Further w/u of new onset Seizures as per Neurology. AED coverage with Keppra. 3. Mobilize OOB 4. Thiamine and Folate. Watch for s/sx ETOH withdrawal. Librium started. 5. K supplemented. 6. Stable for regular med/surg bed.
[2018-12-08] MEDS: Lactated Ringer's 1,000 ML IV SCH ×2 (09:09→21:07)
[2018-12-08] MEDS: Benzocaine/Menthol (Cepacol) Lozenge PO PRN ×2 (09:59→13:12)
--- NOTE | 2018-12-08 10:17 | PCM.EEG ---
Electroencephalogram Report - Electroencephalogram Report Procedure Date: 12/07/18 Medication: Librium, Folic acid, labetalol. Interpretation: Technical Information: This was a 16 -channel EEG, 1-channel EKG routine EEG performed using an [employer] machine. Electrodes were applied using the 10/20 international placement system. Start; End; 50 Total 46 min Clinical Information: seizures During resting wakefulness there was a symmetric posterior dominant rhythm at 8.5-9.5 Hz, 30-50 uV, which was reactive to eye opening and closing. Drowsiness (11;25) was associated with fragmentation of the posterior dominant rhythm and with slow roving eye movements. Hyperventilation was not performed. Photic stimulation was performed and there were no changes on the record. Focal abnormality; none Excess beta activity seen. ECG was associated with a normal sinus rhythm. Impression: This is a normal awake and drowsy electroencephalogram.
--- NOTE | 2018-12-08 11:53 | CP.PCM.PN ---
Subjective - Date & Time of Evaluation Date of Evaluation: 12/08/18 Time of Evaluation: 11:50 - Subjective Subjective: Neuro Follow-Up Note: Mr. Reyez was evaluated in the ICU this morning. He was downgraded to med-surg this morning. He states that today he feels fine and offers no complaints. He has had no further seizure activity and admits the seizure he had several days ago was the first he'd ever had. He admits to drinking on a daily basis but did not decrease his consumption on the day of the seizure. He attributes the seizure to not taking his HTN meds for 2 weeks (gets his HTN meds mailed to him from [facility]). Currently denies h/a, dizziness, visual changes, chest pain, palpitations, sob, cough, abd pain, n/v/d. Objective - Vital Signs/Intake and Output Vital Signs (last 24 hours): Temp Pulse Resp BP Pulse Ox 99.2 F 96 H 18 157/106 H 96 12/08/18 08:00 12/08/18 09:07 12/08/18 08:00 12/08/18 09:07 12/08/18 08:00 - Medications Medications: Current Medications Benzocaine/Menthol (Cepacol Sore Throat) 1 elizabeth PO Q3 PRN PRN Reason: Sore Throat Last Admin: 12/08/18 09:59 Dose: 1 elizabeth Chlordiazepoxide (Librium) 50 mg PO Q8@0600,1400,2200 [facility] Last Admin: 12/08/18 07:00 Dose: 50 mg Cyanocobalamin (Vitamin B12 1000 Mcg/Ml Inj) 1,000 mcg IM DAILY [facility] Last Admin: 12/08/18 09:05 Dose: 1,000 mcg Folic Acid (Folic Acid) 1 mg GT DAILY [facility] Last Admin: 12/08/18 09:08 Dose: 1 mg Piperacillin Sod/Tazobactam (Sod 3.375 gm/ Sodium Chloride) 100 mls @ 100 mls/hr IVPB Q6 [facility]; Protocol Last Admin: 12/08/18 09:10 Dose: 100 mls/hr Lactated Ringer's (Lactated Ringer's) 1,000 mls @ 84 mls/hr IV .[id number] [facility] Last Admin: 12/08/18 09:09 Dose: 84 mls/hr Labetalol HCl (Trandate) 20 mg IVP Q3H PRN PRN Reason: Systolic Blood Pressure Levetiracetam (Keppra) 500 mg PO BID [facility] Last Admin: 12/08/18 09:08 Dose: 500 mg Lorazepam (Ativan) 1 mg IVP Q6 PRN PRN Reason: Symptoms of alcohol withdrawl Metoprolol Tartrate (Lopressor) 50 mg PO BID [facility] Last Admin: 12/08/18 09:06 Dose: 50 mg Nifedipine (Procardia) 10 mg PO Q8@0200,1000,1800 [facility] Last Admin: 12/08/18 09:07 Dose: 10 mg Thiamine HCl (Vitamin B1 Tab) 100 mg GT DAILY [facility] Last Admin: 12/08/18 09:09 Dose: 100 mg - Labs Labs: 12/08/18 05:25 12/08/18 05:25 PT 10.8 Seconds (9.8-13.1) 12/06/18 16:40 INR 1.0 12/06/18 16:40 APTT 28.5 Seconds (25.6-37.1) 12/06/18 16:40 - Constitutional Appears: Well, Non-toxic, No Acute Distress - Head Exam Head Exam: NORMOCEPHALIC - Eye Exam Eye Exam: EOMI, Normal appearance, PERRL Pupil Exam: NORMAL ACCOMODATION, PERRL - ENT Exam ENT Exam: Mucous Membranes Moist, Normal Exam - Neck Exam Neck Exam: Full ROM, Normal Inspection - Respiratory Exam Respiratory Exam: NORMAL BREATHING PATTERN - Cardiovascular Exam Cardiovascular Exam: REGULAR RHYTHM - GI/Abdominal Exam GI & Abdominal Exam: Soft - Extremities Exam Extremities Exam: Full ROM. absent: Calf Tenderness, Pedal Edema - Back Exam Back Exam: Full ROM, NORMAL INSPECTION - Neurological Exam Neurological Exam: Alert, Awake, CN II-XII Intact, Oriented x3, Reflexes Normal Neuro motor strength exam: Left Upper Extremity: 5, Right Upper Extremity: 5, Left Lower Extremity: 5, Right Lower Extremity: 5 Additional comments: Speech clear, fluid AAOx3 Strength equal b/l, strong No sensory or motor deficits noted Reflexes normal Gait not assessed. - Psychiatric Exam Psychiatric exam: Normal Affect, Normal Mood - Skin Skin Exam: Normal Color Assessment and Plan (1) Seizure Assessment & Plan: Imaging reviewed: -CTA (12/06/18): unremarkable -CT Head (12/06/18): No intracranial hemorrhage or mass effect seen. No calvarial fracture. There is left frontal temporal soft tissue/scalp asymmetrical soft tissue changes and prominence here. This can be seen with a trauma. Correlate clinically. -MRI Brain without contrast ordered to evaluate as this was a first time seizure and there was no decrease in ETOH use on day of the seizure. -Continue Keppra 500 mg PO BID -Continue seizure precautions -Continue CIWA -Notify neuro of any change in condition Case discussed with Dr. Roy Status: Acute
--- NOTE | 2018-12-08 17:24 | MRI ---
Date of service: 12/08/2018 PROCEDURE: MRI BRAIN WITHOUT CONTRAST HISTORY: New onset seizure.. COMPARISON: Comparison made with CT scan of the brain and CTA of the neck and brain both dated 12/06/2018. The TECHNIQUE: Multiplanar, multisequence MR images of the brain were obtained without intravenous contrast enhancement. FINDINGS: HEMORRHAGE: No acute parenchymal, subarachnoid or extra-axial hemorrhage. No evidence of hemosiderin deposition is identified on gradient echo weighted sequence. DWI: No evidence of an acute or early subacute infarction seen on diffusion imaging.. BRAIN PARENCHYMA: No mass effect or edema. No atrophy or chronic microvascular ischemic changes.. No obvious parenchymal nor extra-axial seen on this noncontrast exam. No evidence of mesial temporal sclerosis. VENTRICLES: No obstructive hydrocephalus. CRANIUM: Unremarkable. ORBITS: Orbits and contents grossly unremarkable PARANASAL SINUSES/MASTOIDS: Small focus of mucosal thickening noted in the posterior aspect floor right maxillary sinus VASCULAR SYSTEM: The visualized major vascular flow voids at skull base patent. OTHER FINDINGS: None. IMPRESSION: No acute intracranial hemorrhage or infarct.. No evidence of mesial temporal sclerosis. No obvious masses or collections seen.
[2018-12-08 20:13] LABS: GAMMA GLUTAMYL TRANSPEPTIDASE 88 U/L (8-78)
[2018-12-09] MEDS: Lactated Ringer's 1,000 ML IV SCH (03:04)
[2018-12-09] MEDS: Piperacillin/Tazobact 3.375 GM in Sodium Chloride 0.9% 100 ML IVPB SCH ×4 (04:01→21:59)
[2018-12-09 06:45] LABS: HEMOGLOBIN 13.8 g/dL (12.0-18.0); MEAN CELL VOLUME 88.7 fl (80.0-94.0); MEAN CORPUSCULAR HEMOGLOBIN 29.2 pg (27.0-31.0); MEAN CORPUSCULAR HGB CONC 32.9 g/dL (33.0-37.0); RBC 4.71 Mil/uL (4.40-5.90); RED CELL DISTRIBUTION WIDTH 14.3 % (11.5-14.5); WHITE BLOOD COUNT 6.6 K/uL (4.8-10.8)
[2018-12-09 07:16] LABS: ALB/GLOB RATIO 1.2 (1.0-2.1); ALBUMIN 3.7 g/dL (3.5-5.0); ALT/SGPT 39 U/L (21-72); AST/SGOT 41 U/L (17-59); BLOOD UREA NITROGEN 5 mg/dl (9-20); CALCIUM 8.8 mg/dL (8.4-10.2); GFR NON-AFRICAN AMERICAN > 60
--- NOTE | 2018-12-09 08:38 | PN ---
DATE: 12/09/2018 SUBJECTIVE: The patient seen and examined. Interim events noted. Consults noted and appreciated. The patient remains in regular medical floor. Feels much better. Complains of throat irritation and occasional cough. No chest pain. No shortness of breath. No dizziness. No seizures. PHYSICAL EXAMINATION: GENERAL: The patient is in no acute distress. VITAL SIGNS: Stable. THROAT: Exam does not show any acute upper respiratory tract infection. HEART: S1 and S2, normal and regular. LUNGS: Good bilateral air exchange. ABDOMEN: Soft, nontender. EXTREMITIES: No edema. No calf swelling. No tenderness. No acute ischemia. SOLID CENTER WINDER: Exam is essentially unchanged. DIAGNOSTIC DATA: Available diagnostic data reviewed. MRI is unremarkable. EEG is also unremarkable. ASSESSMENT AND PLAN: Overall, the patient is clinically stable and improving. Plan as ordered. Mariano Rondon MD
[2018-12-09] MEDS: Benzocaine/Menthol (Cepacol) Lozenge PO PRN (19:53)
[2018-12-10] MEDS: Lactated Ringer's 1,000 ML IV SCH ×2 (02:49→16:59)
[2018-12-10 07:58] LABS: HEMOGLOBIN 14.5 g/dL (12.0-18.0); MEAN CORPUSCULAR HEMOGLOBIN 29.3 pg (27.0-31.0); MEAN CORPUSCULAR HGB CONC 33.7 g/dL (33.0-37.0); RBC 4.93 Mil/uL (4.40-5.90); RED CELL DISTRIBUTION WIDTH 13.8 % (11.5-14.5); WHITE BLOOD COUNT 6.1 K/uL (4.8-10.8)
[2018-12-10 08:46] LABS: ALB/GLOB RATIO 1.2 (1.0-2.1); ALBUMIN 3.8 g/dL (3.5-5.0); ALT/SGPT 35 U/L (21-72); AST/SGOT 63 U/L (17-59); BLOOD UREA NITROGEN 7 mg/dl (9-20); CALCIUM 9.1 mg/dL (8.4-10.2); GFR NON-AFRICAN AMERICAN > 60
[2018-12-10] MEDS: guaiFENesin DM 200 mg-20 mg/10 ml UD PO SCH ×2 (09:07→16:56)
--- NOTE | 2018-12-10 09:17 | PN ---
DATE: 12/10/2018 SUBJECTIVE: The patient seen and examined. Interim events noted. The patient feels much better. No chest pain. No shortness of breath. No sign of seizures. No symptoms of withdrawal. PHYSICAL EXAMINATION: GENERAL: The patient is in no acute distress. VITAL SIGNS: Stable. HEART: S1 and S2, normal and regular. LUNGS: Good bilateral air exchange. ABDOMEN: Soft and nontender. EXTREMITIES: No edema. No calf swelling. No tenderness. No acute ischemia. CENTRAL NERVOUS SYSTEM: Exam is essentially unchanged. The patient does complain of occasional cough and agitation, most likely from EG tube, but eatables normal. DIAGNOSTIC DATA: Available diagnostic data reviewed. ASSESSMENT AND PLAN: Overall, the patient's general medical condition is stable and improved. Plan as ordered. Mariano Rondon MD
[2018-12-10] MEDS: Benzocaine/Menthol (Cepacol) Lozenge PO PRN (22:53)
[2018-12-10 23:33] VITALS: O2SAT 95
[2018-12-11] MEDS: guaiFENesin DM 200 mg-20 mg/10 ml UD PO SCH ×2 (01:30→09:11)
[2018-12-11] MEDS: Lactated Ringer's 1,000 ML IV SCH (02:21)
[2018-12-11 05:57] LABS: HEMOGLOBIN 15.4 g/dL (12.0-18.0); MEAN CELL VOLUME 88.1 fl (80.0-94.0); MEAN CORPUSCULAR HGB CONC 32.9 g/dL (33.0-37.0); RBC 5.29 Mil/uL (4.40-5.90); RED CELL DISTRIBUTION WIDTH 13.8 % (11.5-14.5); WHITE BLOOD COUNT 7.2 K/uL (4.8-10.8)
[2018-12-11 06:08] LABS: ALB/GLOB RATIO 1.1 (1.0-2.1); ALT/SGPT 45 U/L (21-72); AST/SGOT 74 U/L (17-59); BLOOD UREA NITROGEN 8 mg/dl (9-20); CALCIUM 9.1 mg/dL (8.4-10.2); GFR NON-AFRICAN AMERICAN > 60
[2018-12-11 08:33] VITALS: PULSE 68; RESP 20; TEMP 97.8
--- NOTE | 2018-12-11 11:40 | PN ---
DATE: 12/11/2018 SUBJECTIVE: The patient seen and examined. Interim events noted. The patient remains in regular medical floor. The patient feels okay. Denies any specific complaints. Withdrawal symptoms are controlled with Librium. No chest pain. No shortness of breath. PHYSICAL EXAMINATION: GENERAL: The patient is in no acute distress. VITAL SIGNS: Stable. HEART: S1, S2 normal and regular. LUNGS: Good bilateral air exchange. ABDOMEN: Soft and nontender. EXTREMITIES: No edema. No calf swelling. No tenderness. No acute ischemia. CENTRAL NERVOUS SYSTEM: Essentially unchanged. The patient still complains of throat irritation on review of systems. DIAGNOSTIC DATA: Available diagnostic data reviewed. ASSESSMENT: Overall, the patient's general medical condition is stable. PLAN: As ordered. Mariano Rondon MD
[2018-12-11 12:01] VITALS: BP 133/87
--- NOTE | 2018-12-11 12:55 | CP.PCM.PN ---
Subjective - Date & Time of Evaluation Date of Evaluation: 12/11/18 Time of Evaluation: 12:55 - Subjective Subjective: Neuro Follow-Up Note: Mr. Reyez was evaluated this afternoon at bedside. Family present. He states that he feels great and is looking forward to going home. No further seizure activity. Denies h/a, dizziness, visual changes, chest pain, palpitations, sob, cough, abd pain, n/v/d. Objective - Vital Signs/Intake and Output Vital Signs (last 24 hours): Temp Pulse Resp BP Pulse Ox 97.8 F 68 20 133/87 95 12/11/18 08:32 12/11/18 09:11 12/11/18 08:32 12/11/18 12:01 12/11/18 08:32 - Medications Medications: Current Medications Benzocaine/Menthol (Cepacol Sore Throat) 1 elizabeth PO Q3 PRN PRN Reason: Sore Throat Last Admin: 12/10/18 22:53 Dose: 1 elizabeth Chlordiazepoxide (Librium) 25 mg PO Q8 PRN PRN Reason: Agitation Clonidine HCl (Catapres) 0.1 mg PO Q6 PRN PRN Reason: Other Last Admin: 12/09/18 19:52 Dose: 0.1 mg Cyanocobalamin (Vitamin B12 1000 Mcg/Ml Inj) 1,000 mcg IM DAILY [facility] Last Admin: 12/11/18 09:18 Dose: 1,000 mcg Diphenhydramine HCl (Benadryl) 25 mg PO Q6 PRN PRN Reason: Itching / Pruritus Folic Acid (Folic Acid) 1 mg GT DAILY [facility] Last Admin: 12/11/18 09:09 Dose: 1 mg Guaifenesin/Dextromethorphan (Robitussin Dm) 10 ml PO Q8 [facility] Last Admin: 12/11/18 09:11 Dose: 10 ml Lactated Ringer's (Lactated Ringer's) 1,000 mls @ 84 mls/hr IV .[id number] [facility] Last Admin: 12/11/18 02:21 Dose: 84 mls/hr Levetiracetam (Keppra) 500 mg PO BID [facility] Last Admin: 12/11/18 09:09 Dose: 500 mg Lorazepam (Ativan) 1 mg IVP BID PRN PRN Reason: Symptoms of alcohol withdrawl Metoprolol Tartrate (Lopressor) 100 mg PO BID [facility] Last Admin: 12/11/18 09:10 Dose: 100 mg Nifedipine (Procardia) 10 mg PO Q8@0200,1000,1800 [facility] Last Admin: 12/11/18 09:11 Dose: 10 mg Thiamine HCl (Vitamin B1 Tab) 100 mg GT DAILY [facility] Last Admin: 12/11/18 09:11 Dose: 100 mg - Labs Labs: 12/11/18 05:20 12/11/18 05:20 PT 10.8 Seconds (9.8-13.1) 12/06/18 16:40 INR 1.0 12/06/18 16:40 APTT 28.5 Seconds (25.6-37.1) 12/06/18 16:40 - Constitutional Appears: Well, Non-toxic, No Acute Distress - Head Exam Head Exam: ATRAUMATIC, NORMAL INSPECTION, NORMOCEPHALIC - Eye Exam Eye Exam: EOMI, Normal appearance - ENT Exam ENT Exam: Mucous Membranes Moist, Normal Exam - Neck Exam Neck Exam: Full ROM, Normal Inspection - Respiratory Exam Respiratory Exam: NORMAL BREATHING PATTERN - Extremities Exam Extremities Exam: Full ROM, Normal Inspection. absent: Calf Tenderness, Pedal Edema - Back Exam Back Exam: Full ROM, NORMAL INSPECTION - Neurological Exam Neurological Exam: Alert, Awake, CN II-XII Intact, Normal Gait, Oriented x3, Reflexes Normal Neuro motor strength exam: Left Upper Extremity: 5, Right Upper Extremity: 5, Left Lower Extremity: 5, Right Lower Extremity: 5 Additional comments: No focal neuro, motor, sensory deficits. No tremors, no clonus - Psychiatric Exam Psychiatric exam: Normal Affect, Normal Mood - Skin Skin Exam: Normal Color Assessment and Plan (1) Seizure Assessment & Plan: Imaging reviewed: -MRI brain (12/08/18): No acute intracranial hemorrhage or infarct.. No evidence of mesial temporal sclerosis. No obvious masses or collections seen. -CTA (12/06/18): unremarkable -CT Head (12/06/18): No intracranial hemorrhage or mass effect seen. No calvarial fracture. There is left frontal temporal soft tissue/scalp asymmetrical soft tissue changes and prominence here. This can be seen with a trauma. Correlate clinically. -Continue Keppra 500 mg PO BID upon d/c. -Follow up with Dr. Roy in the office within 1 month. -Notify neuro of any change in condition. Case discussed with Dr. Roy Status: Acute
== END 2018-12-11 16:05 | disposition home or self-care (01) | DRG 100 ==
LOC: H.ER 16:30 → H.ERHOLD 17:59 → H.ICU/CCU 21:13 → H.MEDSURG1 12-08 12:46
PROVIDERS: ADMIT Internal Medicine; ATTEND Internal Medicine
PROC: 5A1935Z Respiratory Ventilation, Less than 24 Consecutive Hours (ICD-10-PCS; principal; 2018-12-06)
DX: G40.909 Epilepsy, unspecified, not intractable, without status epilepticus (principal); J96.00 Acute respiratory failure, unspecified whether with hypoxia or hypercapnia; E72.20 Disorder of urea cycle metabolism, unspecified; E87.2 Acidosis; J98.11 Atelectasis; I16.1 Hypertensive emergency; M62.82 Rhabdomyolysis; E87.6 Hypokalemia; F10.10 Alcohol abuse, uncomplicated; F17.200 Nicotine dependence, unspecified, uncomplicated; R73.9 Hyperglycemia, unspecified; Z91.14 Patient's other noncompliance with medication regimen